=== PATIENT | male | born 1980 | race Caucasian/White ===

== ENCOUNTER 2024-10-08 12:37 | Observation (INO) | payer OTHER, SELFPAY ==
[2024-10-08] VITALS (14 sets, daily range): BP systolic 92–126; BP diastolic 44–90; PULSE 52–102; RESP 14–22; TEMP 36.2–36.7; O2SAT 94–100; BMI 21.2
--- NOTE | 2024-10-08 12:42 | XR_ITS ---
WS: [id number] Left leg including the tibia and fibula, AP and lateral views, 10/08/2024 Clinical Data: trauma Comparison: None. Findings: No fractures or dislocations are seen. The tibia and fibula are intact. There is a soft tissue injury in the mid posterior leg. There is air in the soft tissue.. XR/XR tibia fibula LT 2V [id number] Impression: 1. Negative for left leg fracture. 2. Soft tissue injury to subcutaneous tissue of posterior left leg.
--- NOTE | 2024-10-08 12:54 | P.HP_ITS ---
Providers/Chief Complaint 2 Chief Complaint: chansaw accident- left lower leg History of Present Illness Andrew Killian is a 44 year old male who came in as a trauma chainsaw to the left lower extremity. Patient has a large laceration over the lateral aspect of the left leg. Only skin and muscle seem to be involved. No bone exposure. Neuro vascularly intact. Medications/Allergies Home Medications ?Medication ?Instructions ?Recorded ?Confirmed ?Last Taken ?Type No Known Home Medications 10/08/24 03/08/14 Unknown History Allergies Allergy/AdvReac Type Severity Reaction Status Date / Time No Known Allergies Allergy Verified 10/08/24 12:44 Vitals/I&O/Wt Last Vital Signs Temp 97.9 F 10/08/24 12:42 Pulse 87 10/08/24 12:42 Resp 16 10/08/24 12:42 BP 116/90 10/08/24 12:42 Pulse Ox 100 10/08/24 12:42 O2 Del Method Room Air 10/08/24 12:42 Weight last 48 hrs Weight 140 lb Physical Exam 2 Narrative: Chest: Unlabored breathing room air. No lymphadenopathy. Heart: Regular rate and rhythm. Abdomen: Soft, nontender, nondistended. No masses or lymphadenopathy. Left leg: Large laceration over the lateral aspect, deepest layer involved muscle. Data 10/08/24 13:16 10/08/24 13:16 A&P Assessment and plan (1) Leg laceration: Plan 44-year-old male came in as a trauma with a large laceration left lower extremity lateral aspect. Deepest layer involved muscle. Discussed risk and benefits and patient agrees to proceed to the operating room for wound washout, complex wound closure of left leg laceration. Antibiotics and tetanus shot administered in ED. PDMP PDMP Reviewed: Not Reviewed Attestations 2 Medical Necessity Statement*: IV antibiotics, IV pain meds Coding Level of Care Code 27936 Diagnoses Leg laceration S81.819A Time Spent (min) 30
[2024-10-08] MEDS: ondansetron 2 mg/ML SDV 2 mL 4 MG IVP (13:18)
[2024-10-08] MEDS: morphine 4 mg/mL SDV 1 mL IVP (13:22)
--- NOTE | 2024-10-08 13:22 | ED_ITS ---
HPI - Trauma 2 General: Chief Complaint: Trauma Stated Complaint: chansaw accident- left lower leg Time Seen by Provider: 10/08/24 12:42 History of Present Illness: 44-year-old male presents emergency room via EMS with a laceration from a chainsaw accident to the inner aspect of his proximal left lower leg. It affects the medial aspect of the left gastroc muscle. Approximately 10 to 12 inches in length exposing the underlying muscle. No active bleeding on arrival he is unsure of his last tetanus shot denies any other injuries. Associated symptoms: Denies abdominal pain, back pain, chest pain, chills or fever(s) Related Data Previous Rx's ?Medication ?Instructions ?Recorded oxycodone 5 mg tablet 5 mg PO Q6H PRN pain 5 days #10 10/08/24 tabs Allergies Allergy/AdvReac Type Severity Reaction Status Date / Time No Known Allergies Allergy Verified 10/08/24 12:44 Review of Systems 2 Const: Denies: fever(s) or chills Card: Denies: chest pain Resp: Denies: dyspnea GI: Denies: abdominal pain : Denies: dysuria, urinary frequency or urinary urgency Musc: Reports: extremity pain; Denies: neck pain or back pain Skin/Breast: Denies: rash Physical Exam 2 Const: COMMON NORMALS: no acute distress GENERAL APPEARANCE: cooperative and comfortable ORIENTATION/CONSCIOUSNESS: Yes awake, Yes oriented to person, Yes oriented to place and Yes oriented to time HENMT: COMMON NORMALS: normocephalic, atraumatic and hearing grossly normal bilaterally HEAD & SCALP: normocephalic and atraumatic Resp: COMMON NORMALS: normal respiratory effort, No retractions, No use of accessory muscles and clear to auscultation bilaterally AUSCULTATION: clear to auscultation bilaterally Cardio: COMMON NORMALS: regular rate, regular rhythm and No murmurs present (Cardio) RATE: regular rate RHYTHM: regular rhythm GI: COMMON NORMALS: Soft to palpation and No hepatosplenomegaly present A USCULTATION: Yes normoactive bowel sounds PALPATION: Yes Soft to palpation, No Tenderness to palpation present (GI), No Guarding due to palpation present (GI) and Yes No hepatosplenomegaly present Extremity: OTHER: Open gaping wound with exposed gastroc muscle no active bleeding wound examined. There is no evidence of foreign debris. X-ray does not show any bony involvement there is no exposure to bone in the wound Neuro: SENSORIUM/ORIENTATION: Yes oriented to person, Yes oriented to place and Yes oriented to time Skin: COMMON NORMALS: no rashes or lesions noted GENERAL SKIN EXAM: no rashes or lesions noted Course 2 Vital Signs: Vital signs: Vital Signs Temperature 97.2 F L 10/08/24 15:08 Pulse Rate 99 10/08/24 15:08 Respiratory Rate 20 H 10/08/24 15:08 Blood Pressure 119/66 10/08/24 15:08 Pulse Oximetry 97 10/08/24 15:08 Oxygen Delivery Me thod Room Air 10/08/24 15:08 MDM - Trauma Medical Decision Making Discussed with Dr. Hernandez is on-call for general surgery this will need washout in the OR for adequate anesthesia for washing out in for repairing the muscle and the superficial skin. Dr. Hernandez asked to place patient ulceration lasted about 2 hours prior to arrival. His tetanus was updated and he is given a gram Rocephin pain medications. Discussed with the patient. Medical Records I reviewed the patient's medical records. Lab Data I reviewed the patient's lab results. 10/08/24 13:16 10/08/24 13:16 Radiology Impressions Tibia/Fibula X-Ray 10/08/24 12:42 Impression: 1. Negative for left leg fracture. 2. Soft tissue injury to subcutaneous tissue of posterior left leg. Laboratory Results WBC 9.49 10^3/uL (3.29-11.43) 10/08/24 13:16 RBC 4.22 10^6/uL (3.85-5.65) 10/08/24 13:16 Hgb 11.90 g/dL (11.27-16.99) 10/08/24 13:16 Hct 35.4 % (37-53) L 10/08/24 13:16 MCV 83.9 fl (82-101) 10/08/24 13:16 MCH 28.2 pg (27-33) 10/08/24 13:16 MCHC 33.6 g/dL (30-55) 10/08/24 13:16 RDW 12.2 % (12.1-15.1) 10/08/24 13:16 Plt Count 232 10^3/cmm (157-399) 10/08/24 13:16 MPV 9.9 fL (7.4-10.4) 10/08/24 13:16 Neut % (Auto) 76.6 % 10/08/24 13:16 Lymph % (Auto) 16.2 % 10/08/24 13:16 Wharton % (Auto) 4.6 % 10/08/24 13:16 Eos % (Auto) 1.8 % 10/08/24 13:16 Baso % (Auto) 0.5 % 10/08/24 13:16 Neut # (Auto) 7.26 10^3/uL (1.8-7.7) 10/08/24 13:16 Lymph # (Auto) 1.5 10^3/uL (0.8-4.8) 10/08/24 13:16 Wharton # (Auto) 0.4 10^3/uL (0.2-0.9) 10/08/24 13:16 Eos # (Auto) 0.2 10^3/uL (0.0-0.8) 10/08/24 13:16 Baso # (Auto) 0.1 10^3/uL (0.0-0.1) 10/08/24 13:16 Nucleated RBC % (auto) 0 % 10/08/24 13:16 Nucleated RBCs # 0.0 /100WBC 10/08/24 13:16 Sodium 135 mmol/L (136-145) L 10/08/24 13:16 Potassium 3.2 mmol/L (3.5-5.1) L 10/08/24 13:16 Chloride 100 mmol/L (98-107) 10/08/24 13:16 Carbon Dioxide 25 mmol/L (22-29) 10/08/24 13:16 Anion Gap 13.2 (5-19) 10/08/24 13:16 BUN 20 mg/dL (6-20) 10/08/24 13:16 Creatinine 1.2 mg/dL (0.7-1.2) 10/08/24 13:16 GFR Calculation 65.8 mL/min (90-130) L 10/08/24 13:16 Glucose 123 mg/dL (65-115) H 10/08/24 13:16 Calculated Osmolality 284 mOsm/kg (285-295) L 10/08/24 13:16 Calcium 8.6 mg/dL (8.5-10.5) 10/08/24 13:16 Total Bilirubin 0.3 mg/dL (0.15-1.2) 10/08/24 13:16 AST 19 U/L (0-40) 10/08/24 13:16 ALT 13 U/L (0-41) 10/08/24 13:16 Alkaline Phosphatase 68 U/L (40-130) 10/08/24 13:16 Total Protein 6.4 g/dL (6.6-8.7) L 10/08/24 13:16 Albumin 4.1 g/dL (3.5-5.2) 10/08/24 13:16 Globulin 2.3 g/dL (1.3-4.6) 10/08/24 13:16 All radiology interpretation(s) finalized by discharge Discharge Plan Discharge Patient Disposition: Admitted As Inpatient Admit Provider: Christian Hernandez Clinical Impression: Leg laceration Condition: Stable Discharge Diet: Usual diet Discharge Activity: Limit activity as instructed Coding Level of Care Code ED Echocardiologist for Serjio Armstrong
[2024-10-08] MEDS: ceFAZolin 1,000 mg SDV 1000 MG IVP (13:24)
[2024-10-08 13:30] LABS: Basophils # 0.1 10^3/uL (0.0-0.1); Basophils % 0.5 %; Eosinophils # 0.2 10^3/uL (0.0-0.8); Eosinophils % 1.8 %; Hematocrit 35.4 % (37-53); Lymphocytes # 1.5 10^3/uL (0.8-4.8); Lymphocytes % 16.2 %; Mean Corpuscular HGB Conc 33.6 g/dL (30-55); Mean Corpuscular Hemoglobin 28.2 pg (27-33); Mean Corpuscular Volume 83.9 fl (82-101); Mean Platelet Volume 9.9 fL (7.4-10.4); Monocytes # 0.4 10^3/uL (0.2-0.9); Monocytes % 4.6 %; Neutrophils # 7.26 10^3/uL (1.8-7.7); Neutrophils % 76.6 %; Nucleated Red Blood Cells % 0 %; Platelet Count 232 10^3/cmm (157-399); Red Blood Count 4.22 10^6/uL (3.85-5.65); Red Cell Distribution Width 12.2 % (12.1-15.1); White Blood Count 9.49 10^3/uL (3.29-11.43)
--- NOTE | 2024-10-08 13:44 | ANES.PREANE2 ---
Pre-Anesthetic Assessment Height/Weight: Height 5 ft 8 in Weight 140 lb Temp Pulse Resp BP Pulse Ox O2 Del Method 97.9 F 93 17 126/70 97 Room Air 10/08/24 12:42 10/08/24 13:35 10/08/24 13:22 10/08/24 13:35 10/08/24 13:35 10/08/24 12:42 Preop Diagnosis: Lower left calf laceration from chainsaw Operation Date: 10/08/24 13:50 Proposed Procedures p Wound Exploration-Leg Washout and Closure LLE(Left) - Christian Hernandez MD Was Beta Tiburcio taken within 24 hours: N/A Was Clonidine taken within 24 hours: N/A Social No alcohol and No tobacco Exam alert, oriented x 3, clear to auscultation bilaterally and regular rate & rhythm Airway Submandibular: within normal limits Cervical ROM: within normal limits Mallampati: Class I Dentition: full Anesthetic Plan ASA status: 1E Anesthesia: General Other: No prior issues with anesthesia Patient ate a few donuts at 11 AM today Denies any cardiac or pulmonary issues Surgeon was onsite when accident occurred, estimated blood loss was 30 cc Vitals currently stable Labs reviewed and acceptable for procedure Consents to blood products if needed Plan for GETA with RSI Medications/Allergies Home Medications ?Medication ?Instructions ?Recorded ?Confirmed ?Last Taken ?Type No Known Home Medications 10/08/24 10/08/24 Unknown History Allergies Allergy/AdvReac Type Severity Reaction Status Date / Time No Known Allergies Allergy Verified 10/08/24 12:44 Data Anesthesia 10/08/24 13:16 10/08/24 13:16 Short CBC 10/08/24 Range/Units 13:16 WBC 9.49 (3.29-11.43) 10^3/uL Hgb 11.90 (11.27-16.99) g/dL Hct 35.4 L (37-53) % MCV 83.9 (82-101) fl Plt Count 232 (157-399) 10^3/cmm Neut % (Auto) 76.6 % Neut # (Auto) 7.26 (1.8-7.7) 10^3/uL Cardiac Studies: No Data to Display
[2024-10-08 13:47] LABS: Alanine Aminotransferase 13 U/L (0-41); Albumin Level 4.1 g/dL (3.5-5.2); Alkaline Phosphatase 68 U/L (40-130); Anion Gap 13.2 (5-19); Aspartate Amino Transferase 19 U/L (0-40); Blood Urea Nitrogen 20 mg/dL (6-20); Calcium 8.6 mg/dL (8.5-10.5); Carbon Dioxide 25 mmol/L (22-29); Chloride 100 mmol/L (98-107); Globulin 2.3 g/dL (1.3-4.6); Glomerular Filtration Rate 65.8 mL/min (90-130); Glucose 123 mg/dL (65-115); Osmolality Calculated 284 mOsm/kg (285-295); Potassium 3.2 mmol/L (3.5-5.1); Sodium 135 mmol/L (136-145); Total Bilirubin 0.3 mg/dL (0.15-1.2); Total Protein 6.4 g/dL (6.6-8.7)
[2024-10-08] MEDS: sodium chloride 0.9% 1,000 ML 30 ML IV (14:02)
[2024-10-08] MEDS: ceFAZolin 2,000 mg SDV 2000 MG IVP (14:03)
[2024-10-08] MEDS: neomycin-poly-bacitracin oint 28 gm 1 APPLIC TOPICAL (14:28)
--- NOTE | 2024-10-08 14:29 | PM.OP ---
Operative Report Date of procedure: October 08, 2024 Pre-op diagnosis: Left lower extremity laceration 8 x 4 cm down to muscle. Post-op diagnosis: same Post-op findings: 8 x 4 cm laceration down to muscle left lower extremity Procedure done: Left lower extremity wound washout, sharp debridement of devitalized skin, complex wound closure Implants: N/A Specimens removed/disposition: N/A Surgeon: Christian Hernandez MD Medical Authorization Specialist: N/A Anesthesia: MAC Estimated blood loss (mL): 10 Complications: N/A Findings: Left lower extremity 8 x 4 cm laceration down to muscle. No foreign bodies identified. Wound washed out and closed. Condition: stable Disposition: observation Brief History: 44-year-old male who presented with a left lower extremity laceration 8 x 4 cm down to muscle. Discussed risk and benefits and patient agreed to proceed with a wound washout, complex wound closure. Procedure: Patient was brought into the operating room table. MAC was induced. Antibiotics were administered. Tetanus shot was administered prior to the OR. The left lower extremity wound was washed out with a combination of Betadine and normal saline 500 cc. The left lower extremity was prepped and draped in the usual sterile fashion. Patient had a wound of 8 x 4 cm with muscle exposure. No foreign bodies were identified. About 4 cm of skin edge was debrided since it was devitalized. I then proceeded to perform a complex wound closure. I placed multiple interrupted simple sutures using 2-0 nylon. Since this is an area that is prone to a lot of tension I also placed multiple vertical mattress sutures using 2-0 nylon. The skin was approximated nicely. Antibiotic ointment was applied and a island dressing was applied. Left lower extremity was wrapped using gauze and an Mert wrap. The patient woke up from anesthesia without any complications.
--- NOTE | 2024-10-08 15:09 | ANE.PACU2 ---
Inpatient post-anesthesia follow up: Airway intact: Yes Vital signs: Temperature 97.6 F Pulse Rate 102 Respiratory Rate 17 Blood Pressure 100/58 Pulse Oximetry 94 Oxygen Delivery Me thod Room Air Oxygen Flow Rate Fraction of Inspir ed Oxygen Hydration adequate: Yes Nausea and vomiting: No Pain level: 1 Mental status: Baseline
== END 2024-10-08 18:45 | disposition home or self-care (01) ==
LOC: ER 13:19 → OR 13:21 → MEDSURG 14:14
PROVIDERS: Admitting Provider Student in an Organized Health Care Education/Training Program; Emergency Provider Family Medicine; Visit Provider Student in an Organized Health Care Education/Training Program
PROC: (CPT 13121; principal; 2024-10-08 13:50)
DX: S86.922A Laceration of unspecified muscle(s) and tendon(s) at lower leg level, left leg, initial encounter (principal); W29.3XXA Contact with powered garden and outdoor hand tools and machinery, initial encounter
CPT/HCPCS: 13121; 36415; 73590; 80053; 85025; 96374; 96375; 99285; G0378; J0330; J0690; J2250; J2270; J2405; J2704; J3010; J7030; J9999